=== PATIENT | male | born 1950 | race Caucasian/White ===

== ENCOUNTER 2019-08-19 00:41 | Day surgery (SDC) | payer MEDICARE, SELFPAY ==
[2019-07-20 10:57] VITALS: BP 146/72; PULSE 66; RESP 20; TEMP 36.9; O2SAT 97; BMI 35.8
[2019-08-19] VITALS (9 sets, daily range): BP systolic 127–155; BP diastolic 59–89; PULSE 60–78; RESP 15–23; TEMP 36.1–37.2; O2SAT 94–100
[2019-08-19 11:49] LABS: Glucose Point of Care 129 (65-105)
--- NOTE | 2019-08-19 12:19 | WPDANESEPPF ---
Anes - Initial Pre Proc Eval Procedure: Operation Date: 08/19/19 13:00 Proposed Procedures p Insertion Inflatable Penile Prosthesis - Adriane Grady MD Date/Time: 08/19/19 12:19 Surgeon: Adriane Grady MD Pre Op Diagnosis: Erectile Dysfunction Patient Data Age: 68 Gender: M Height: 5 ft 10 in Weight: 113.2 kg Last Vital Signs Temp 36.9 C 07/20/19 10:57 Pulse 66 07/20/19 10:57 Resp 20 07/20/19 10:57 BP 146/72 H 07/20/19 10:57 Pulse Ox 97 07/20/19 10:57 Allergies Allergy/AdvReac Type Severity Reaction Status Date / Time codeine Allergy Unknown Nausea and Verified 07/28/19 13:13 Vomiting Penicillins Allergy Unknown Unknown Verified 07/28/19 13:13 Sulfa (Sulfonamide Allergy Unknown Nausea Verified 07/28/19 13:13 Antibiotics) Home Medications Medication Instructions Recorded Confirmed Type atorvastatin 40 mg PO DAILY 07/20/19 07/28/19 History azelastine-fluticasone 1 spray INTRANASAL BID 07/20/19 07/28/19 History bupropion HCl 300 mg PO QAM 07/20/19 07/28/19 History carvedilol 3.125 mg PO BID 07/20/19 07/28/19 History cyanocobalamin (vitamin B-12) 1,000 mcg PO DAILY 07/20/19 07/28/19 History glimepiride 1 mg PO BID 07/20/19 07/28/19 History isosorbide mononitrate 10 mg PO BID 07/20/19 07/28/19 History lisinopril 5 mg PO DAILY 07/20/19 07/28/19 History metformin 500 mg PO BID 07/20/19 07/28/19 History testosterone cypionate 150 mg IM [id number] 07/20/19 07/28/19 History aspirin 81 mg tablet,delayed 81 mg PO DAILY 07/24/19 07/28/19 History release Laboratory Tests 08/19/19 11:43 POC Capillary Glucose 129 mg/dl H mg/dl (65-105) Patient hx anesthesia problems: none Family hx anesthesia problems: none PMFSH Past Medical History Medical History CAD in [place] artery Chest pain at rest 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, managed as type 2 Dyslipidemia Essential hypertension Obstructive sleep apnea Other chest pain (05/26/15) Pure hypercholesterolemia Type 2 diabetes mellitus with hyperglycemia Surgical History Surgical History History of back surgery Family History Family History Father Family history of cataracts Family history of chronic obstructive pulmonary disease Asthma Mother Family history of arthritis Family history of lymphoma Social History Social History Smoking status: Former smoker Smoking end date: 07/15/13 Alcohol intake: never Anes - Eval Final PreProcedure Day of Procedure 08/19/19 12:19 Patient weight: obese Heart: regular rate and rhythm Lungs: clear to auscultation Airway: Mallampati scale class III Neurological: alert and oriented Last oral intake: >/= 8 hours ASA classification: IV Emergent: no Anesthetic plan: proceed Anesthesia type and monitoring: general LMA and standard monitoring Informed Consent: The patient's anesthetic plan and its attendant risks and benefits were discussed with the patient/family/POA. Questions were solicited and answers provided to the satisfaction of the patient/family/POA.
[2019-08-19] MEDS: LACTATED RINGERS 1,000 ML 30 ML IV CONT ×2 (12:30→16:11)
--- NOTE | 2019-08-19 12:56 | WPDHPUPDATE1 ---
History and Physical Update Update Date/Time: 08/19/19 12:56 History and Physical has been reviewed, including an updated exam of the patient. There are NO changes in the patient's condition. Risks, benefits, and alternatives have been discussed and questions answered. Patient agrees to proceed with procedure.
[2019-08-19 16:37] LABS: Glucose Point of Care 131 (65-105)
--- NOTE | 2019-08-19 17:05 | PC.NURSE ---
This patient, Jayson Mccrary, was admitted to 3 [facility] Surg Room 311-01. Patient/family oriented to hospital policies and general routines including ID bracelet, bed and alarms, visiting hours, pain management, procedures, bathroom and other care routines, personal items, smoking policy, room service/diet, and visiting hours. Valuables list has been completed. Information on how to activate the Rapid Response Team has been discussed. Patient/Family are encouraged to report perceived risks to care and to ask questions if they do not understand what they are told or what they should do.
[2019-08-19] MEDS: ONDANSETRON INJ 4 MG/2 ML VIAL IV PUSH (17:34)
[2019-08-19] MEDS: DEXTROSE 5%/0.45% SOD CHL 1,000 ML 125 ML IV CONT (17:36)
--- NOTE | 2019-08-19 22:26 | OP_ITS ---
DATE OF PROCEDURE: 08/19/2019 PREOPERATIVE DIAGNOSIS: Erectile dysfunction. POSTOPERATIVE DIAGNOSIS: Erectile dysfunction. PROCEDURE PERFORMED: 1. Implantation of 3-piece inflatable penile prosthesis. 2. Artificial erection using pharmacologic agent. DESCRIPTION OF PROCEDURE: After informed consent was obtained, the patient was taken to the operating room, given preoperative IV antibiotics with vancomycin and gentamicin. The patient has been taking oral Levaquin at home as well as a 3-day Hibiclens wash. The patient was shaved. He was prepped with Betadine followed by ChloraPrep and drapes were placed. He was then prepped again with ChloraPrep. A 16-Maori Moreno catheter was inserted with return of clear urine. We then changed our gloves. An artificial erection using dilute lidocaine was performed showing a symmetric erection. We then made a 3 cm penoscrotal incision. We bluntly dissected down to identify the corporal bodies. Stay sutures with 2-0 PDS were placed through the right corporal body, which was then opened. We then dilated with Grimes dilators up to #12. We then measured approximately 11 cm and distally 6 cm. We then performed an identical procedure on the contralateral side dilating carefully to #12 Grimes dilator. We then inserted a Jovany tool for measurements, we measured 6 cm distally and then with 11 cm proximally. There was a slight step-off on the left side and I was able to get an additional 1 cm length. I felt this may be a small perforation in the proximal corporal body. We therefore used the measurements of 6 cm distal and 11 cm proximal. We then irrigated copiously and there was no distal perforation. We placed dilators proximally bilaterally and they sat equally with a large dilator. We elected to place an AMS 15 cm LGX device with 2 cm rear tips. We placed a 0 Prolene suture through the left rear tip and through and through the corporal bodies to act as a rear-tip sling in as I suspect there was a small left proximal perforation. We then inserted the implant using a surrogate reservoir, it was inflated and sat nicely with the tips in the mid glans. There was a mild dorsal curvature approximately 20 degrees which did not appear to be necessary to be corrected. We therefore deflated. We closed the corporotomies. We then inflated the device placing tension on the sutures to the glans. We then tied the Prolene suture. The tips were in mid glans and the device set nicely. We then tested and inflated again with a very nice symmetric cosmetic result. At this point, we elected to place a reservoir in the right lower quadrant. We made a 3 cm right lower quadrant incision. We dissected down to the external oblique fascia. The fascia was opened. We spread the rectus muscle. We irrigated copiously. We pre-placed sutures with 0 Vicryl suture through the external oblique fascia. We made a subrectus space for the reservoir, it was filled with 110 mL with minimal back pressure, we therefore elected to leave 87 mL in the reservoir. We closed our fascial opening with the pre-placed sutures. We then made a subdartos midline pouch for the pump and tubing was brought up to the abdominal incision. We closed the hiatus for the tubing to the pump with a 3-0 Vicryl suture. We then used the Quick Connect device in order to connect the pump to the reservoir. We then cycled the device again and it functioned nicely. We then irrigated copiously. We then closed the scrotum with multiple layers of 3-0 Vicryl suture followed by 3-0 Monocryl horizontal mattress skin closure. The right lower quadrant was closed with a 2-0 Vicryl to the Javier, a 3-0 Vicryl deep dermal suture, and a 4-0 Monocryl subcuticular closure. Glue was placed over all incisions. A compressive dressing was placed. The patient was awaken a
[2019-08-19] MEDS: MORPHINE SULFATE 2 MG/ML INJ IV PUSH (22:35)
[2019-08-20 02:00] VITALS: BP 144/68; PULSE 81; RESP 18; TEMP 36.9; O2SAT 96
[2019-08-20] MEDS: DEXTROSE 5%/0.45% SOD CHL 1,000 ML 125 ML IV CONT (02:14)
[2019-08-20 06:00] VITALS: BP 135/72; PULSE 74; RESP 18; TEMP 36.9; O2SAT 96
[2019-08-20] MEDS: DOCUSATE SODIUM 100 MG CAPSULE PO (08:10)
[2019-08-20] MEDS: ENOXAPARIN 30 MG/0.3 ML SYRINGE SUB-Q (08:12)
--- NOTE | 2019-08-20 09:00 | WPDUROPN2 ---
Progress Note: A&P Assessment and Plan (1) Erectile dysfunction: Code(s): N52.9 - Male erectile dysfunction, unspecified Status: Acute Assessment and Plan: Dressings removed. No swelling. Moreno removed. Discharge home after voids. Subjective Subjective Date/Time Seen: 08/20/19 09:00 Post Op day: 1 Principal diagnosis: Erectile dysfunction Interval history: POD#[address] Grady. Doing well. NO major complaints. Urine clear Review of Systems Review of Systems: All systems reviewed & are unremarkable except as noted in HPI and below Exam Const: General: no acute distress Eyes: General: appearance normal, both eyes and all related structures Resp: Effort & Inspection: normal respiratory effort Cardio: Rate: regular rate : Male General Exam: Yes normal external exam Other: No ecchymosis or redness at this time. No significant swelling either Urinary Catheter: Urinary Catheter: patent and draining and urine clear Skin: General skin exam: normal color Objective Data Vital Signs Vital Signs: Vital Signs - 24 hr 08/19/19 12:32 08/19/19 16:11 08/19/19 16:20 Temperature 37.2 C 36.1 C L Pulse Rate 66 60 61 Respiratory Rate 18 20 17 Blood Pressure 127/59 L 139/74 137/89 Pulse Oximetry 98 100 94 08/19/19 16:30 08/19/19 16:45 08/19/19 17:05 Temperature 37.2 C Pulse Rate 61 61 63 Respiratory Rate 15 17 18 Blood Pressure 138/81 142/79 H 155/80 H Pulse Oximetry 94 94 96 08/19/19 18:35 08/19/19 21:57 08/19/19 22:11 Temperature 37.1 C Pulse Rate 69 72 78 Respiratory Rate 18 20 23 H Blood Pressure 141/74 H 147/69 H Pulse Oximetry 95 97 96 08/20/19 02:00 08/20/19 06:00 Temperature 36.9 C 36.9 C Pulse Rate 81 74 Respiratory Rate 18 18 Blood Pressure 144/68 H 135/72 Pulse Oximetry 96 96 Intake/Output Intake/Output: Intake & Output 08/17/19 08/18/19 08/19/19 08/20/19 23:59 23:59 23:59 23:59 Intake Total 2354.719 1547 Output Total 20 1700 Balance 1644.125 201 Meds/Results Medications: Active Medications Generic Name Dose Route Start Last Admin Trade Name Freq PRN Reason Stop Dose Admin Hydrocodone Bitart/Acetaminophen 1 tab 08/19/19 16:08 08/20/19 08:54 [place] 5-325 Mg PO 1 tab Q4H PRN Administration Pain Rated 1-6 Docusate Sodium 100 mg 08/19/19 17:00 08/20/19 08:10 Colace Capsule PO 100 mg BID DANIEL Administration Enoxaparin Sodium 30 mg 08/20/19 09:00 08/20/19 08:12 Lovenox SUB-Q 30 mg DAILY DANIEL Administration Lactated Ringer's 1,000 mls @ 30 mls/hr 08/19/19 12:15 08/19/19 16:11 Lr - Lactated Ringers Iv IV CONT Infused .Q24H DANIEL Infusion Lactated Ringer's 1,000 mls @ 30 mls/hr 08/19/19 12:25 08/19/19 16:53 Lr - Lactated Ringers Iv IV CONT 30 mls/hr .Q24H DANIEL Infusion Gentamicin Sulfate/Sodium Chloride 80 mg in 50 mls @ 100 mls/hr 08/20/19 16:00 Gentamicin 80mg/Sod Chl 50 Ml IVPB 08/20/19 16:29 ONCE ONE Vancomycin HCl 1,000 mg in 250 mls @ 250 mls/hr 08/20/19 00:00 08/20/19 01:20 Vancomycin 1,000 Mg/D5w 250 Ml IVPB 08/20/19 12:59 Infused Q12H DANIEL Infusion Levofloxacin 500 mg 08/20/19 09:00 08/20/19 08:11 Levaquin Tab PO 500 mg QAM DANIEL Administration Morphine Sulfate 2 mg 08/19/19 16:08 08/19/19 22:35 Morphine Sulfate Inj IV PUSH 2 mg Q2H PRN Administration Pain Rated 7-10 Naloxone HCl 0.1 mg 08/19/19 16:08 Narcan IV PUSH Q2M PRN Opiate Reversal Ondansetron HCl 4 mg 08/19/19 17:23 08/19/19 17:34 Zofran Inj IV PUSH 4 mg Q6H PRN Administration Nausea And Vomiting Labs Labs: Laboratory Results - last 24 hr 08/19/19 08/19/19 11:43 16:36 POC Capillary Glucose 129 H 131 H
--- NOTE | 2019-08-20 13:15 | WPDANESPN ---
Anes - Prog Note Post-Op Date/Time: 08/20/19 13:15 Cardiovascular status: normal Respiratory status: normal Airway patency: baseline Mental status: baseline Post-Op hydration status: normal Vital Signs: Last Vital Signs Temp 36.9 C 08/20/19 06:00 Pulse 74 08/20/19 06:00 Resp 18 08/20/19 06:00 BP 135/72 08/20/19 06:00 Pulse Ox 96 08/20/19 06:00 I/O: Intake & Output 08/19/19 08/20/19 08/20/19 23:59 07:59 15:59 Intake Total 1050 1901 240 Output Total 20 1700 Balance 1030 201 240 08/19/19 16:36 POC Capillary Glucose 131 H Post-procedural complaints: none Patient Feedback: Patient satisfied with anesthetic care.
[2019-08-20 14:26] VITALS: BP 136/78; PULSE 82; RESP 20; TEMP 36.8; O2SAT 100
[2019-08-20] MEDS: GENTAMICIN 80MG/SOD CHL 50 ML 80 MG/50 ML BAG 100 MG IVPB (14:38)
== END 2019-08-20 15:45 | disposition home or self-care (01) ==
LOC: ANHSURGERY 10:45 → ANH3MEDSUR 19:44
PROVIDERS: PCP Internal Medicine; Visit Provider Urology
PROC: (CPT 54405; principal; 2019-08-19 13:00)
DX: N52.9 Male erectile dysfunction, unspecified (principal); I25.119 Atherosclerotic heart disease of native coronary artery with unspecified angina pectoris; E13.9 Other specified diabetes mellitus without complications; E78.5 Hyperlipidemia, unspecified; G47.33 Obstructive sleep apnea (adult) (pediatric); Z79.82 Long term (current) use of aspirin; Z79.84 Long term (current) use of oral hypoglycemic drugs; Z87.891 Personal history of nicotine dependence
CPT/HCPCS: 54405; 54235; A9270; J1580; J1650; J2250; J2270; J2405; J2704; J3010; J3370; J7030; J7120

== ENCOUNTER 2021-02-23 12:13 | Outpatient (CLI) | payer MEDICARE, SELFPAY ==
--- NOTE | 2021-02-23 12:28 | ECHO_ITS ---
Patient Info Name: Jayson Mccrary Age: 70 years : 1950 Gender: Male Ht: 70 in Wt: 250 lbs BSA: 2.41 m2 HR: 82 bpm BP: 136 / 82 mmHg Technical Quality: Fair Exam Date: 02/23/2021 12:54 PM Exam Location: [facility] Patient Status: Outpatient Admit Date: 02/23/2021 Staff Ordering Physician: Fred Jimenez DO Dog Track Kennel Manager: Brenda Butler RDCS Attending Provider: Fred Jimenez DO Referring Physician: Tony VARGAS; Exam Type: CA echo dop color flow w con Study Info Indications I25.110 - Atherosclerotic heart disease of [place] coronary artery with unstable angina pectoris Complete two-dimensional, color flow and Doppler transthoracic echocardiogram is performed with contrast to opacify the left ventricle and to improve the deliniation of the left ventricle endocardial borders. Contrast/Agitated Saline Contrast/Ag. Saline: Definity Amount: 2.00 ml Administered By: Christina Lozano RN Summary 1. Left ventricular chamber dimension is normal. 2. Definity contrast administered improved wall motion interpretation. 3. Basal posterior wall is hypokinetic. 4. Left ventricular systolic function is preserved, estimated at 50-55%. 5. The left ventricular diastolic function is grade I diastolic dysfunction. 6. E/e' 8 is minimally elevated. 7. Left atrial chamber dimension is mildly enlarged. 8. There is trace mitral valve regurgitation. 9. There is trace tricuspid valve regurgitation. 10. No pulmonary hypertension, estimated pulmonary arterial systolic pressure is 17 mmHg. Left Ventricle Left ventricular systolic function is preserved, estimated at 50-55%. E/e' 8 is minimally elevated. Definity contrast administered improved wall motion interpretation. Basal posterior wall is hypokinetic. Left ventricular chamber dimension is normal. The left ventricular diastolic function is grade I diastolic dysfunction. Right Ventricle Right ventricular chamber dimension is normal. Right ventricular systolic function is normal. Left Atria Left atrial chamber dimension is mildly enlarged. Right Atria Right atrial chamber dimension is normal. Aortic Valve The aortic valve is trileaflet. There is no aortic valve stenosis. There is no aortic valve regurgitation. Pulmonic Valve There is no pulmonic regurgitation. Mitral Valve There is no mitral valve stenosis. There is trace mitral valve regurgitation. Tricuspid Valve There is trace tricuspid valve regurgitation. No pulmonary hypertension, estimated pulmonary arterial systolic pressure is 17 mmHg. Pericardium/Pleural There is no pericardial effusion. Inferior Vena Cava Normal inferior vena cava with >50% collapse upon inspiration consistent with normal right atrial pressure, 5 mmHg. Aorta The aortic root size at the sinus of Valsalva is normal. Left Ventricular Outflow Tract Name Value Normal LVOT 2D LVOT Diameter 2.11 cm LVOT Doppler LVOT Peak Gradient 5 mmHg LVOT Mean Gradient 3 mmHg LVOT VTI 22.15 c
== END 2021-02-23 12:14 | disposition home or self-care (01) ==
PROVIDERS: PCP Internal Medicine; Visit Provider Internal Medicine Cardiovascular Disease
DX: I25.119 Atherosclerotic heart disease of native coronary artery with unspecified angina pectoris (principal)
CPT/HCPCS: C8929

== ENCOUNTER 2022-08-20 08:45 | Outpatient (RCR) | payer MEDICARE, SELFPAY ==
--- NOTE | 2022-07-06 12:28 | PTOPEVAL1 ---
Assessment and note entered by Zoe Adams, PT Evaluation Information Assessment Status Evaluation Diagnosis cervicalgia Onset ~3 months Subjective Information Fell at football game and landed on right, but left side is the side that bothers him. Right side is sore, but the left shoulder and upper arm goes numb. Reported Pain Level Pain Score 1: Self Report Assessment PT Clinical Summary Pt presents w/ c/o neck pain and numbness into left shoulder/upper arm at times. Reports also right shoulder soreness. States this all started when he fell while walking and landed on his right side. Evaluation demo's increased muscle tone jeffrey pec major bilat, upper traps, and deep cervical paraspinal muscles. Pt demo's cervical ROM WFL with crepitus, but significantly reduced thoracic spine mobility and abnormal scapular position bilaterally. Pt also demo's abnormal spinal alignment related to short LLE but reports he has tried heel lifts to level his pelvis which just caused increased pain. Pt will benefit from therapy to address thoracic mobility, scapular position, muscle tension and postural strength to reduce N/T symptoms and improve comfort during activities. Plan of Care Interventions Electrical Stimulation,Hot Pack/Cold Pack,Manual Therapy,Neuro Re-education,Therapeutic Activities, Therapeutic Exercise,Ultrasound PT Services Indicated Yes Treatment Frequency and 1x weekly x 6 weeks Duration These treatments will address the objective and functional deficits as defined above. The patient will be advanced safely and appropriately in order for the patient to progress towards his/her prior level of function. Additional exercises will be introduced and as well as a comprehensive home exercise program upon discharge, if needed, ?to ensure carryover of functional gains achieved in the clinic. This treatment plan has been reviewed and agreement upon by the patient.
--- NOTE | 2022-08-20 09:39 | PTOPDC ---
Assessment and note entered by Zoe Adams, PT Assessment Status Discharge Diagnosis cervicalgia Onset ~3 months Subjective Information Neck is not doing too bad, is stiff but is not bothering me as much Feels 80% improved. Reported Pain Level Pain Score 0: Self Report Assessment PT Clinical Summary Pt reports feeling 80% improved overall. Left arm tingling happens occasionally, but is mostly resolved. PT reports current discomfort rates 0-1/ 10, reports is mostly stiffness in nature. Today pt shows greatly improved postures, muscle tone, less tenderness, improved ROM jeffrey thoracic, and no pain with testing today. Pt was provided updated HEP, demonstrated ability to perform activities, reports understanding of independent progression. Pt has mostly met his therapy goals and is happy with his progress. Thus pt is being discharged from plan of care at this time.
== END 2022-08-20 11:07 | disposition home or self-care (01) ==
LOC: ANHHIPT 08:45
PROVIDERS: PCP Family Medicine; Visit Provider Family Medicine
DX: M54.2 Cervicalgia (principal)
CPT/HCPCS: 97014; 97110; 97140; 97161; G0283

== ENCOUNTER 2024-10-23 10:00 | Outpatient (RCR) | payer MEDICARE, SELFPAY ==
--- NOTE | 2024-09-03 18:18 | PTOPEVAL1 ---
Assessment and note entered by Annie Hermosillo, PT Evaluation Information Assessment Status Evaluation Diagnosis M25.811; M54.2 ICD-10 Condition Codes (PT) Cervicalgia M54.2,Pain in right shoulder M25.511 Onset chronic, had a recent flare up Subjective Information Pt c/o pain to R shoulder described as sore and achy, as well as neck stiffness and discomfort. Shoulder pain > the neck recently. In the past, the neck has been bothering him a lot. Symptoms had been going on for years but had a flare up earlier this month, wakes him up at night when he moves his arm a certain way. moving arm out while bending elbow worsens the pain, relieved with resting arm at the side; Sometimes pain affected his wood carving hobby. The neck usually feel stiff in the morning, or when he is sleeping the wrong way, R side of neck is sore more than the L. Uses ice and arthritis Tylenol for relief. Reported Pain Level Pain Score 2: Self Report Assessment PT Clinical Summary Pt is a 73 yo male who presents to therapy with c/ o R shoulder pain and neck stiffness. 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 Test and Measures indicate a possible impingement syndrome with rotator cuff muscle involvement. Significant pain intensity, deficits in active ROM and strength impacts safety of performing IADLs and reduces quality of life. Pt will greatly benefit from skilled PT for education, pain management and to regain mobility and functional strength to return to performing functional task without pain and discomfort. Plan of Care Interventions Check Out for Orthotic/Prosthetic,Electrical Stimulation,Hot Pack/Cold Pack,Manual Therapy, Mechanical Traction,Neuro Re-education,Patient/ Caregiver Education,Therapeutic Activities, Therapeutic Exercise,Self-Care/Home Management, Ultrasound,Other Other Interventions IASTM, Taping PT Services Indicated Yes Treatment Frequency and 1-2x/wk x 12 visits Duration These treatments will address the objective and functional deficits as defined above. The patient will be advanced safely and appropriately in order for the patient to progress towards his/her prior level of function. Additional exercises will be introduced and as well as a comprehensive home exercise program upon discharge, if needed, ?to ensure carryover of functional gains achieved in the clinic. This treatment plan has been reviewed and agreement upon by the patient.
--- NOTE | 2024-09-28 15:37 | PTOPPROG ---
Assessment and note entered by Annie Hermosillo, PT Progress Information Assessment Status Progress Diagnosis M25.811; M54.2 ICD-10 Condition Codes (PT) Cervicalgia M54.2,Pain in right shoulder M25.511 Onset chronic, had a recent flare up Subjective Information Pt reports pain is not significantly reduced since starting therapy. Recently, was affecting his sleep; reports last night he woke up and had to take Tylenol Arthritis Extra Strength and applied Biofreeze but it barely touch the pain level. States wants to plan on participating in pain management program at this point. Assessment PT Clinical Summary Pt received 7 treatment sessions with therapy and drewos slow progress towards goals. It is note- worthy to include the recent fall 08/23/2024 on outstretched BUE resulting to a setback and flare up again of the pain and inflammation on the R shoulder. He also continue to perform heavy outdoor activities repeatedly which may slow down healing and recovery. Currently continue to report pain and discomfort to R shoulder muscles on certain movements impacting his sleep and functional mobility. He will benefit from further evaluation and diagnostic imaging to accurately depict the specific affected part and severity of condition. Pt plans on getting on a pain management program but wants to continue receiving therapy to further improve mobility, strength and stability of the shoulder muscle. He will benefit from continued therapy sessions to address deficits. Plan of Care Interventions Check Out for Orthotic/Prosthetic,Electrical Stimulation,Hot Pack/Cold Pack,Manual Therapy, Mechanical Traction,Neuro Re-education,Patient/ Caregiver Education,Therapeutic Activities, Therapeutic Exercise,Self-Care/Home Management, Ultrasound,Other Other Interventions IASTM, Taping PT Services Indicated Yes Treatment Frequency and 1-2x/wk x 8 visits Duration These treatments will address the objective and functional deficits as defined above. The patient will be advanced safely and appropriately in order for the patient to progress towards his/her prior level of function. Additional exercises will be introduced and as well as a comprehensive home exercise program upon discharge, if needed, ?to ensure carryover of functional gains achieved in the clinic. This treatment plan has been reviewed and agreement upon by the patient.
--- NOTE | 2024-10-23 16:44 | PTOPDC ---
Assessment and note entered by Annie Hermosillo, PT Discharge Information Assessment Status Discharge Diagnosis M25.811; M54.2 ICD-10 Condition Codes (PT) Cervicalgia M54.2,Pain in right shoulder M25.511 Onset chronic, had a recent flare up Subjective Information Pt reports he is having multiple MD appointments and between taking care of his medical conditions and his 's it has been harder to keep up with therapy sessions lately. He states that he is actually doing alright with regard to his arm problems, 60% better since starting therapy but he is still unable to lift the shoulder with elbow bent at this time, persisted up to now. He is planning to get an MRI and may go to a pain management for a shot at this time. Reported Pain Level Pain Score 2: Self Report Additional Pain Score Comments 5-6/10 repeated movement after carving hobby he is feeling it on his shoulders Assessment PT Clinical Summary Pt received a total of 8 treatment sessions and demos gains in mobility and strength. However, due to other underlying personal stressors and the constant using of the affected shoulder which limit further progress at this time. Pt reports the discomfort is not as bad as it used to and he continue to perform functional activities, compliant with HEPs and agreeable to DC at this time. Plan of Care PT Services Indicated No
== END 2024-10-27 08:34 | disposition home or self-care (01) ==
LOC: ANHHIPT 10:00
PROVIDERS: PCP Physician Assistant Medical; Visit Provider Physician Assistant Medical
DX: M25.811 Other specified joint disorders, right shoulder (principal); M54.2 Cervicalgia
CPT/HCPCS: 97012; 97014; 97035; 97110; 97140; 97161; 97530; G0283